=== PATIENT | female | born 1980 ===

== ENCOUNTER 2024-06-13 00:12 | Emergency (ER) | payer OTHER ==
[~2024-06-13] VITALS: Ht 157.5 cm; Wt 68.2 kg
[2024-06-13 00:35] VITALS: BP 122/53; PULSE 77; RESP 16; TEMP 98.3
== END 2024-06-13 02:33 | disposition home or self-care (01) ==
LOC: EMS 00:12
DX: S93.401A Sprain of unspecified ligament of right ankle, initial encounter (principal); E78.00 Pure hypercholesterolemia, unspecified; X50.1XXA Overexertion from prolonged static or awkward postures, initial encounter; Y93.89 Activity, other specified; Y92.89 Other specified places as the place of occurrence of the external cause; Y99.8 Other external cause status
CPT/HCPCS: 84703; 99284; 73610-TC; Z7502